=== PATIENT | female | born 1985 ===

== ENCOUNTER 2018-11-27 09:28 | Inpatient (IN) | payer BC ==
[2018-11-27] MEDS ORDERED: Misoprostol 200 MCG Tab PO PRN (10:23)
[2018-11-27] MEDS ORDERED: Terbutaline 1 MG/ML SDV SUBCUT PRN (10:23)
[2018-11-27] MEDS ORDERED: Nalbuphine 10 MG/1 ML Vial IVPUSH PRN (10:23)
[2018-11-27] MEDS ORDERED: Misoprostol 25 MCG (1/4 of 100 MCG) Tab VAG PRN ×2 (10:23)
[2018-11-27] MEDS ORDERED: Butorphanol 1 MG/ML SDV IVPUSH PRN (10:23)
[2018-11-27] MEDS ORDERED: Water For Irrigation,Sterile 1,000 ML Container IRR PRN (10:23)
[2018-11-27] MEDS ORDERED: Sodium Chloride 0.9% 10 ML SDV IV PRN (10:23)
[2018-11-27] MEDS ORDERED: Sodium Chloride 0.9% 2.5 ML Syringe FLUSH PRN (10:23)
[2018-11-27] MEDS ORDERED: Lidocaine 1% 50 ML MDV INJECT PRN (10:23)
[2018-11-27] MEDS ORDERED: Tranexamic Acid 1,000 MG in Sodium Chloride 0.9% 100 ML IV PRN (10:23)
[2018-11-27] MEDS ORDERED: Carboprost Tromethamine 250 MCG/1 ML Amp IM PRN (10:23)
[2018-11-27] MEDS ORDERED: Sodium Chloride 0.9% 10 ML Syringe FLUSH PRN (10:23)
[2018-11-27] MEDS ORDERED: Methylergonovine 0.2 MG/1 ML Amp IM PRN (10:23)
[2018-11-27] MEDS ORDERED: Oxytocin/0.9 % Sodium Chloride 30 UNIT/500 ML BAG IV SCH ×2 (10:30)
[2018-11-27] MEDS ORDERED: Lactated Ringers 1,000 ML IV SCH (10:30)
[2018-11-27] MEDS ORDERED: ePHEDrine 50 MG/ML SDV ONE (14:02)
[2018-11-27] MEDS ORDERED: fentaNYL 100 MCG/2 ML SDV ONE ×2 (14:30→15:09)
--- NOTE | 2018-11-27 14:42 | PCM.PREANE ---
Preanesthetic Assessment - Anesthesia/Transfusion/Family Hx Anesthesia History: Prior Anesthesia Without Reaction Other Type of Anesthesia Reaction Comment: Reports always get sick, last procedure with pre-IV med and Patch worked Family History of Anesthesia Reaction: No Transfusion History: No Prior Transfusion(s) - Review of Systems General: No Symptoms Pulmonary: No Symptoms Cardiovascular: Other (history of Takotsubo cardiomyopathy) Gastrointestinal: No Symptoms Neurological: No Symptoms Other: Reports: None - Physical Assessment Height: 6 ft 1 in Weight: 170 kg ASA Class: 2 Mental Status: Alert & Oriented x3 Airway Class: Mallampati = 2 Dentition: Reports: Normal Dentition ROM/Head Extension: Full Lungs: Clear to Auscultation, Normal Respiratory Effort Cardiovascular: Regular Rate, Regular Rhythm, Other (hypertension) - Lab Values: Laboratory Last Values WBC 6.13 K/uL (4.0-11.0) 11/27/18 09:25 RBC 4.29 M/uL (4.30-5.90) L 11/27/18 09:25 Hgb 13.2 g/dL (12.0-16.0) 11/27/18 09:25 Hct 40.0 % (36.0-46.0) 11/27/18 09:25 MCV 93.2 fL (80.0-98.0) 11/27/18 09:25 MCH 30.8 pg (27.0-32.0) 11/27/18 09:25 MCHC 33.0 g/dL (31.0-37.0) 11/27/18 09:25 RDW Std Deviation 45.2 fl (28.0-62.0) 11/27/18 09:25 RDW Coeff of Fam 13 % (11.0-15.0) 11/27/18 09:25 Plt Count 182 K/uL (150-400) 11/27/18 09:25 MPV 12.10 fL (7.40-12.00) H 11/27/18 09:25 Nucleated RBC % 0.0 /100WBC 11/27/18 09:25 Nucleated RBCs # 0 K/uL 11/27/18 09:25 Blood Type O POSITIVE 11/27/18 09:25 Antibody Screen NEGATIVE 11/27/18 09:25 - Allergies Allergies/Adverse Reactions: Allergies Allergy/AdvReac Type Severity Reaction Status Date / Time No Known Allergies Allergy Verified 01/18/15 09:45 - Acknowledgements Anesthesia Type Planned: Epidural Pt an Appropriate Candidate for the Planned Anesthesia: Yes Alternatives and Risks of Anesthesia Discussed w Pt/Guardian: Yes Pt/Guardian Understands and Agrees with Anesthesia Plan: Yes PreAnesthesia Questionnaire HEENT History: Reports: Other (See Below) Other HEENT History: nasal surgery Cardiovascular History: Reports: Cardiomyopathy, Hypertension Respiratory History: Reports: None Gastrointestinal History: Reports: None Genitourinary History: Reports: None BURNT LIME DRAWER History: Reports: Ectopic : 2 Para: 1 Other OB/BYN History: Current bleeding in early , abnormally rising hcg levels Musculoskeletal History: Reports: None Other Musculoskeletal History: ORIF Left wrist Neurological History: Reports: Migraines Endocrine/Metabolic History: Reports: None Hematologic History: Reports: None Immunologic History: Reports: None Oncologic (Cancer) History: Reports: None Dermatologic History: Reports: Eczema Other Dermatologic History: Eczema - Past Surgical History Other HEENT Surgeries/Procedures: REduction of fractured nose, Extraction of Douglas teeth Cardiovascular Surgical History: Reports: None Other Cardiovascular Surgeries/Procedures: Cardiac Cath - SUBSTANCE USE Smoking Status *Q: Never Smoker Recreational Drug Use History: No - HOME MEDS Home Medications: Home Meds Cholecalciferol (Vitamin D3) [Vitamin D-3] 1 tab PO DAILY 01/18/15 [History] Fish Oil/Burt-3 Fatty Acids [Fish Oil 1,000 MG] 1 tab PO DAILY 01/18/15 [ History] Labetalol HCl [Labetalol] 1 tab PO BID 01/18/15 [History] Ubidecarenone [Co Q-10] 1 tab PO DAILY 01/18/15 [History] metFORMIN HCl [Metformin HCl] 1 tab PO BID 01/18/15 [History] Ibuprofen 3 tab PO PRN 01/19/15 [History] - CURRENT (IN HOUSE) MEDS Current Meds: Current Medications Butorphanol Tartrate (Stadol) 1 mg IVPUSH Q1H PRN PRN Reason: Pain Last Admin: 11/27/18 12:56 Dose: 1 mg Carboprost Tromethamine (Hemabate Ds) 250 mcg IM ASDIRECTED PRN PRN Reason: Post Hemorrhage Lactated Ringer's (Ringers, Lactated) 1,000 mls @ 150 mls/hr IV ASDIRECTED FRANCINE Last Admin: 11/27/18 10:39 Dose: 150 mls/hr Oxytocin/Sodium Chloride (Oxytocin 30 Unit/500 Ml-Ns) 30 unit in 500 mls @ 999 mls/hr IV TITRATE FRANCINE Oxytocin/Sodium Chloride (Oxytocin 30 Unit/500 Ml-Ns) 30 unit in 500 mls @ 2 mls/hr IV TITRATE FRANCINE; Protocol Last Titration: 11/27/18 12:45 Dose: 10 munits/min, 10 mls/hr Tranexamic Acid 1,000 mg/ (Sodium Chloride) 110 mls @ 660 mls/hr IV ONETIME PRN PRN Reason: Bleeding Lidocaine HCl (Xylocaine 1%) 50 ml INJECT ONETIME PRN PRN Reason: Laceration repair Methylergonovine Maleate (Methergine) 0.2 mg IM ASDIRECTED PRN PRN Reason: Post Hemorrhage Misoprostol (Cytotec) 200 mcg PO ONETIME PRN PRN Reason: Post Hemorrhage Misoprostol (Cytotec) 25 mcg VAG ONETIME PRN PRN Reason: Cervical Ripening Misoprostol (Cytotec) 25 mcg VAG Q4H PRN PRN Reason: Cervical Ripening Nalbuphine HCl (Nubain) 10 mg IVPUSH Q1H PRN PRN Reason: Pain (severe 7-10) Sodium Chloride (Saline Flush) 10 ml FLUSH ASDIRECTED PRN PRN Reason: Keep Vein Open Sodium Chloride (Saline Flush) 2.5 ml FLUSH ASDIRECTED PRN PRN Reason: Keep Vein Open Sodium Chloride (Normal Saline) 10 ml IV ASDIRECTED PRN PRN Reason: IV Use Sterile Water (Sterile Water For Irrigation) 1,000 ml IRR ASDIRECTED PRN PRN Reason: delivery Terbutaline Sulfate (Brethine) 0.25 mg SUBCUT ASDIRECTED PRN PRN Reason: Tacysystole Discontinued Medications Ephedrine Sulfate (Ephedrine Sulfate) Confirm Administered Dose 50 mg .ROUTE .STK-MED ONE Stop: 11/27/18 14:03 Fentanyl (Sublimaze) Confirm Administered Dose 100 mcg .ROUTE .STK-MED ONE Stop: 11/27/18 14:31 Fentanyl/Bupivacaine HCl (Idldjwxz-Iyiah-Dr 2 Mcg/Ml-0.125%) Confirm Administered Dose 100 mls @ as directed .ROUTE .STK-MED ONE Stop: 11/27/18 13:55
[2018-11-27] MEDS ORDERED: Bupivacaine 0.25% 10 ML SDV ONE (14:51)
[2018-11-27] MEDS ORDERED: Acetaminophen 500 MG Tab PO PRN (16:39)
[2018-11-27] MEDS ORDERED: Aluminum Hydroxide/Magnesium Hydroxide/Simethicone Susp 30 ML Cup PO PRN (16:39)
[2018-11-27] MEDS ORDERED: Bisacodyl 10 MG Supp RECTAL PRN (16:39)
[2018-11-27] MEDS ORDERED: Ibuprofen 800 MG Tab PO PRN (16:39)
[2018-11-27] MEDS ORDERED: Benzocaine/Menthol 20%-0.5% Spray 78 GM Cannister TOP PRN (16:39)
[2018-11-27] MEDS ORDERED: Docusate Sodium 100 MG Cap PO PRN (16:39)
[2018-11-27] MEDS ORDERED: Lanolin 100% Cream 7 GM Tube TOP PRN (16:39)
[2018-11-27] MEDS ORDERED: Ibuprofen 400 MG Tab PO PRN (16:39)
[2018-11-27] MEDS ORDERED: oxyCODONE 5 MG Tab PO PRN (16:39)
[2018-11-27] MEDS ORDERED: Witch Hazel Medicated Pads 40/Jar TOP PRN (16:39)
--- NOTE | 2018-11-27 16:42 | PCM.OPNOTE ---
- General Post-Op/Procedure Note Date of Surgery/Procedure: 11/27/18 Findings: Vaginal delivery of male . 7 and 8. Weight pending. 3 vessel cord. Placenta intact. Pre Op Diagnosis: 39/0 IUP presenting for induction of labor. Chronic hypertensive. 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
--- NOTE | 2018-11-27 17:49 | OR ---
SURGEON: Kanika Milligan M.D. DATE OF PROCEDURE: 11/27/2018 PREOPERATIVE DIAGNOSES: 1. 39 weeks' intrauterine . 2. Chronic hypertension. 3. History of cardiomyopathy. POSTOPERATIVE DIAGNOSES: 1. 39 weeks' intrauterine . 2. Chronic hypertension. 3. History of cardiomyopathy. PROCEDURES: Spontaneous vaginal delivery, a first-degree periurethral laceration repaired. PRIMARY SURGEON: Kanika Milligan MD. DATA CONTROL CLERK: Alisa Salamanca MS4. ANESTHESIA: Epidural. ESTIMATED BLOOD LOSS: 300 mL. COMPLICATIONS: None known. FINDINGS: Viable male. scores 9 at 1 minute and 9 at 5 minutes. Weight is pending. Spontaneous delivery, intact placenta, 3-vessel cord. DISPOSITION: Infant to nursery, mom in LDRP. PROCEDURE DETAILS: Yajaira is a 33-year-old, G3, P 1-0-1-1, at 39 weeks' gestational age, who presents for scheduled induction of labor due to chronic hypertension affecting , on labetalol, and history of cardiomyopathy. On the morning of her presentation, she was found to be 3 cm, 70% effaced, minus 2 station and therefore was admitted on Pitocin induction. Category 1 heart tones. The patient underwent amniotomy shortly before 1 p.m. Clear fluid was returned. She is group B beta strep negative. At that time, she was found 4 cm, 80% effaced, minus 2 station. The patient continued to become increasingly uncomfortable, underwent regional anesthesia in the form of epidural. She did have some discomfort with this epidural on the left side. Therefore, ultimately underwent a replacement of this epidural, and thereafter, she began having more pressure. She was found to be 7 to 8 cm, 90% effaced, at a 0 station. There were some variable decelerations noted with contractions, therefore, Pitocin was discontinued. The patient was repositioned, oxygen was applied, IV fluid was administered, and FSE was placed. With this, the patient was able to continue to progress and was feeling pressure. Was found to be in anterior lip. She was placed in modified dorsal lithotomy position, prepped and draped in usual aseptic manner. The anterior lip was able to be reducible, and once complete, began pushing efforts. Pushed readily to a +4 station. Was able to deliver 's head atraumatically spontaneously followed by anterior shoulder, posterior shoulder, and remainder of the body without difficulty. The 's oropharynx and nares were bulb suctioned. was crying and vigorous, handed to his mother with attending nursing staff at her side. After a delay, cord was clamped x2 and cut. Cord arterial, cord venous, cord blood sampling obtained. Light pressure was applied while the placenta was delivered spontaneously intact. Vigorous fundal uterine massage was then applied while 30 units of Pitocin was delivered in 500 mL of IV fluid. Upon inspection of cervix, vaginal sidewalls, and perineum, there was found to be first-degree periurethral laceration that was repaired using 4-0 Vicryl in continuous running fashion on SH needle. Hemostasis appeared evident. Uterus was firm. Sponge count, instrument count, and needle count were correct. The patient remained in LDRP. We will monitor closely in the period for her vital signs and any symptomatology of chest pain or shortness of breath. ESTUARDO / BAILEY /[id number] MTDChandler
[2018-11-27] MEDS ORDERED: Ondansetron 4 MG/2 ML SDV ONE (18:34)
[2018-11-27] MEDS ORDERED: Ondansetron 4 MG/2 ML SDV IVPUSH PRN (19:02)
[2018-11-27] MEDS: Labetalol 100 MG Tab PO SCH (21:22)
[2018-11-27] MEDS: Acetaminophen 500 MG Tab PO PRN (21:25)
--- NOTE | 2018-11-28 05:04 | PCM48HPAN ---
Post Anesthesia Note - EVALUATION WITHIN 48HRS OF ANESTHETIC Vital Signs in Normal Range: Yes Patient Participated in Evaluation: Yes Respiratory Function Stable: Yes Airway Patent: Yes Cardiovascular Function Stable: Yes Hydration Status Stable: Yes Pain Control Satisfactory: Yes Nausea and Vomiting Control Satisfactory: Yes Mental Status Recovered: Yes Pulse Rate: 57 SaO2: 100 Resp Rate: 16 Blood Pressure: 124/81
--- NOTE | 2018-11-28 08:02 | PCM.PNPP ---
<Martha Cordoba - Last Filed: 11/28/18 07:58> - General Info Date of Service: 11/28/18 Functional Status: Reports: Pain Controlled - Review of Systems General: Reports: No Symptoms. Denies: Fatigue, Chills HEENT: Reports: No Symptoms. Denies: Headaches, Visual Changes Pulmonary: Reports: No Symptoms. Denies: Shortness of Breath, Cough Cardiovascular: Reports: No Symptoms. Denies: Chest Pain, Palpitations, Orthopnea, PND Gastrointestinal: Reports: No Symptoms Genitourinary: Reports: No Symptoms Musculoskeletal: Reports: No Symptoms Skin: Reports: No Symptoms Neurological: Reports: No Symptoms Psychiatric: Reports: No Symptoms - General Info Date of Service: 11/28/18 - Patient Data Vital Signs - Most Recent: Last Vital Signs Temp 97.9 F 11/27/18 19:25 Pulse 57 L 11/28/18 05:04 Resp 16 11/28/18 05:04 BP 124/81 11/28/18 05:04 Pulse Ox 100 11/28/18 05:04 Weight - Most Recent: 77.111 kg Lab Results - Last 24 Hours: Laboratory Results - last 24 hr 11/27/18 11/27/18 11/27/18 Range/Units 09:25 09:25 16:21 WBC 6.13 (4.0-11.0) K/uL RBC 4.29 L (4.30-5.90) M/uL Hgb 13.2 (12.0-16.0) g/dL Hct 40.0 (36.0-46.0) % MCV 93.2 (80.0-98.0) fL MCH 30.8 (27.0-32.0) pg MCHC 33.0 (31.0-37.0) g/dL RDW Std Deviation 45.2 (28.0-62.0) fl RDW Coeff of Fam 13 (11.0-15.0) % Plt Count 182 (150-400) K/uL MPV 12.10 H (7.40-12.00) fL Nucleated RBC % 0.0 /100WBC Nucleated RBCs # 0 K/uL Cord ABG pH 7.234 (7.18-7.38) Cord ABG Base Excess -7 (-10--2) Cord VBG pH 7.240 L (7.25-7.45) Cord VBG Base Excess -7 (-10--2) Blood Type O POSITIVE Antibody Screen NEGATIVE 11/28/18 Range/Units 05:45 WBC (4.0-11.0) K/uL RBC (4.30-5.90) M/uL Hgb 12.9 (12.0-16.0) g/dL Hct 39.6 (36.0-46.0) % MCV (80.0-98.0) fL MCH (27.0-32.0) pg MCHC (31.0-37.0) g/dL RDW Std Deviation (28.0-62.0) fl RDW Coeff of Fam (11.0-15.0) % Plt Count (150-400) K/uL MPV (7.40-12.00) fL Nucleated RBC % /100WBC Nucleated RBCs # K/uL Cord ABG pH (7.18-7.38) Cord ABG Base Excess (-10--2) Cord VBG pH (7.25-7.45) Cord VBG Base Excess (-10--2) Blood Type Antibody Screen Med Orders - Current: Current Medications Acetaminophen (Tylenol Extra Strength) 500 mg PO Q4H PRN PRN Reason: Pain Acetaminophen (Tylenol Extra Strength) 1,000 mg PO Q4H PRN PRN Reason: Pain Last Admin: 11/27/18 21:25 Dose: 1,000 mg Al Hydroxide/Mg Hydroxide (Mag-Al Plus) 30 ml PO Q8H PRN PRN Reason: Heartburn Benzocaine/Menthol (Dermoplast Pain Relief 20%-0.5% [place]) 78 gm TOP ASDIRECTED PRN PRN Reason: Perineal Comfort Measure Bisacodyl (Dulcolax) 10 mg RECTAL ONETIME PRN PRN Reason: Constipation Carboprost Tromethamine (Hemabate Ds) 250 mcg IM ASDIRECTED PRN PRN Reason: Post Hemorrhage Docusate Sodium (Colace) 100 mg PO BID PRN PRN Reason: Constipation Emollient Ointment (Lansinoh Hpa) 0 gm TOP ASDIRECTED PRN PRN Reason: Sore Nipples Lactated Ringer's (Ringers, Lactated) 1,000 mls @ 150 mls/hr IV ASDIRECTED FRANCINE Last Admin: 11/27/18 10:39 Dose: 150 mls/hr Oxytocin/Sodium Chloride (Oxytocin 30 Unit/500 Ml-Ns) 30 unit in 500 mls @ 999 mls/hr IV TITRATE FRANCINE Oxytocin/Sodium Chloride (Oxytocin 30 Unit/500 Ml-Ns) 30 unit in 500 mls @ 2 mls/hr IV TITRATE FRANCINE; Protocol Last Titration: 11/27/18 12:45 Dose: 10 munits/min, 10 mls/hr Tranexamic Acid 1,000 mg/ (Sodium Chloride) 110 mls @ 660 mls/hr IV ONETIME PRN PRN Reason: Bleeding Ibuprofen (Motrin) 400 mg PO Q4H PRN PRN Reason: Pain Ibuprofen (Motrin) 800 mg PO Q6H PRN PRN Reason: Pain Labetalol HCl (Normodyne) 200 mg PO BID [facility] Last Admin: 11/27/18 21:22 Dose: 200 mg Methylergonovine Maleate (Methergine) 0.2 mg IM ASDIRECTED PRN PRN Reason: Post Hemorrhage Ondansetron HCl (Zofran) 4 mg IVPUSH Q6H PRN PRN Reason: Nausea/Vomiting Last Admin: 11/27/18 18:40 Dose: 4 mg Oxycodone HCl (Oxycodone) 5 mg PO Q2H PRN PRN Reason: Pain Sodium Chloride (Saline Flush) 10 ml FLUSH ASDIRECTED PRN PRN Reason: Keep Vein Open Sodium Chloride (Saline Flush) 2.5 ml FLUSH ASDIRECTED PRN PRN Reason: Keep Vein Open Sodium Chloride (Normal Saline) 10 ml IV ASDIRECTED PRN PRN Reason: IV Use Sterile Water (Sterile Water For Irrigation) 1,000 ml IRR ASDIRECTED PRN PRN Reason: delivery Terbutaline Sulfate (Brethine) 0.25 mg SUBCUT ASDIRECTED PRN PRN Reason: Tacysystole Witch Serenity (Tucks) 1 pad TOP ASDIRECTED PRN PRN Reason: comfort care Discontinued Medications Bupivacaine HCl (Sensorcaine-Mpf 0.25%) Confirm Administered Dose 10 ml .ROUTE .STK-MED ONE Stop: 11/27/18 14:52 Butorphanol Tartrate (Stadol) 1 mg IVPUSH Q1H PRN PRN Reason: Pain Last Admin: 11/27/18 12:56 Dose: 1 mg Ephedrine Sulfate (Ephedrine Sulfate) Confirm Administered Dose 50 mg .ROUTE .STK-MED ONE Stop: 11/27/18 14:03 Fentanyl (Sublimaze) Confirm Administered Dose 100 mcg .ROUTE .STK-MED ONE Stop: 11/27/18 14:31 Fentanyl (Sublimaze) Confirm Administered Dose 100 mcg .ROUTE .STK-MED ONE Stop: 11/27/18 15:10 Fentanyl/Bupivacaine HCl ([place]-Hhcre-Sq 2 Mcg/Ml-0.125%) Confirm Administered Dose 100 mls @ as directed .ROUTE .STK-MED ONE Stop: 11/27/18 13:55 Lidocaine HCl (Xylocaine 1%) 50 ml INJECT ONETIME PRN PRN Reason: Laceration repair Misoprostol (Cytotec) 200 mcg PO ONETIME PRN PRN Reason: Post Hemorrhage Misoprostol (Cytotec) 25 mcg VAG ONETIME PRN PRN Reason: Cervical Ripening Misoprostol (Cytotec) 25 mcg VAG Q4H PRN PRN Reason: Cervical Ripening Nalbuphine HCl (Nubain) 10 mg IVPUSH Q1H PRN PRN Reason: Pain (severe 7-10) Ondansetron HCl (Zofran) Confirm Administered Dose 4 mg .ROUTE .STK-MED ONE Stop: 11/27/18 18:35 - Infant Interaction Infant Disposition, : in Room with Family Infant Interaction: Holding Infant Infant Feeding: Attempted ; Nursed Fair/Poor, Encouraged to Breastfeed Support Person: - Recovery Exam Fundal Tone: Firm Fundal Level: 2 Fingerbreadths Below Umbilicus Fundal Placement: Midline Lochia Amount: Scant Lochia Color: Rubra/Red Perineum Description: Other (see below) Other Perinuem Description: 1 degree laceration Episiotomy/Laceration: Approximated Bladder Status: Voiding Urinary Elimination: Voided - Exam General: Alert, Oriented HEENT: Pupils Equal Neck: Supple Lungs: Clear to Auscultation, Normal Respiratory Effort Cardiovascular: Regular Rate, Regular Rhythm GI/Abdominal Exam: Normal Bowel Sounds, Soft, Non-Tender, No Organomegaly, No Distention, No Abnormal Bruit, No Mass, Pelvis Stable Extremities: Normal Inspection, Non-Tender, No Pedal Edema, Normal Capillary Refill Skin: Warm, Dry, Intact Wound/Incisions: Healing Well Neurological: No New Focal Deficit Psy/Mental Status: Alert, Normal Affect, Normal Mood - Problem List Review Problem List Initiated/Reviewed/Updated: Yes - Assessment Assessment:: 33y . S/P . PPD1. Ambulating , normal lochia. Voiding. Pain well controlled. Regular diet - Plan Plan:: Regular diet Pain control PRN Continue care <Mamadou Milligana Dago - Last Filed: 11/28/18 08:32> - Patient Data Vital Signs - Most Recent: Last Vital Signs Temp 36.6 C 11/27/18 19:25 Pulse 57 L 11/28/18 05:04 Resp 16 11/28/18 05:04 BP 124/81 11/28/18 05:04 Pulse Ox 100 11/28/18 05:04 Lab Results - Last 24 Hours: Laboratory Results - last 24 hr 11/27/18 11/27/18 11/27/18 Range/Units 09:25 09:25 16:21 WBC 6.13 (4.0-11.0) K/uL RBC 4.29 L (4.30-5.90) M/uL Hgb 13.2 (12.0-16.0) g/dL Hct 40.0 (36.0-46.0) % MCV 93.2 (80.0-98.0) fL MCH 30.8 (27.0-32.0) pg MCHC 33.0 (31.0-37.0) g/dL RDW Std Deviation 45.2 (28.0-62.0) fl RDW Coeff of Fam 13 (11.0-15.0) % Plt Count 182 (150-400) K/uL MPV 12.10 H (7.40-12.00) fL Nucleated RBC % 0.0 /100WBC Nucleated RBCs # 0 K/uL Cord ABG pH 7.234 (7.18-7.38) Cord ABG Base Excess -7 (-10--2) Cord VBG pH 7.240 L (7.25-7.45) Cord VBG Base Excess -7 (-10--2) Blood Type O POSITIVE Antibody Screen NEGATIVE 08/01/19 Range/Units 05:45 WBC (4.0-11.0) K/uL RBC (4.30-5.90) M/uL Hgb 12.9 (12.0-16.0) g/dL Hct 39.6 (36.0-46.0) % MCV (80.0-98.0) fL MCH (27.0-32.0) pg MCHC (31.0-37.0) g/dL RDW Std Deviation (28.0-62.0) fl RDW Coeff of Fam (11.0-15.0) % Plt Count (150-400) K/uL MPV (7.40-12.00) fL Nucleated RBC % /100WBC Nucleated RBCs # K/uL Cord ABG pH (7.18-7.38) Cord ABG Base Excess (-10--2) Cord VBG pH (7.25-7.45) Cord VBG Base Excess (-10--2) Blood Type Antibody Screen Med Orders - Current: Current Medications Acetaminophen (Tylenol Extra Strength) 500 mg PO Q4H PRN PRN Reason: Pain Acetaminophen (Tylenol Extra Strength) 1,000 mg PO Q4H PRN PRN Reason: Pain Last Admin: 11/27/18 21:25 Dose: 1,000 mg Al Hydroxide/Mg Hydroxide (Mag-Al Plus) 30 ml PO Q8H PRN PRN Reason: Heartburn Benzocaine/Menthol (Dermoplast Pain Relief 20%-0.5% [place]) 78 gm TOP ASDIRECTED PRN PRN Reason: Perineal Comfort Measure Bisacodyl (Dulcolax) 10 mg RECTAL ONETIME PRN PRN Reason: Constipation Carboprost Tromethamine (Hemabate Ds) 250 mcg IM ASDIRECTED PRN PRN Reason: Post Hemorrhage Docusate Sodium (Colace) 100 mg PO BID PRN PRN Reason: Constipation Emollient Ointment (Lansinoh Hpa) 0 gm TOP ASDIRECTED PRN PRN Reason: Sore Nipples Lactated Ringer's (Ringers, Lactated) 1,000 mls @ 150 mls/hr IV ASDIRECTED FRANCINE Last Admin: 11/27/18 10:39 Dose: 150 mls/hr Oxytocin/Sodium Chloride (Oxytocin 30 Unit/500 Ml-Ns) 30 unit in 500 mls @ 999 mls/hr IV TITRATE FRANCINE Oxytocin/Sodium Chloride (Oxytocin 30 Unit/500 Ml-Ns) 30 unit in 500 mls @ 2 mls/hr IV TITRATE FRANCINE; Protocol Last Titration: 11/27/18 12:45 Dose: 10 munits/min, 10 mls/hr Tranexamic Acid 1,000 mg/ (Sodium Chloride) 110 mls @ 660 mls/hr IV ONETIME PRN PRN Reason: Bleeding Ibuprofen (Motrin) 400 mg PO Q4H PRN PRN Reason: Pain Ibuprofen (Motrin) 800 mg PO Q6H PRN PRN Reason: Pain Labetalol HCl (Normodyne) 200 mg PO BID FRANCINE Last Admin: 11/27/18 21:22 Dose: 200 mg Methylergonovine Maleate (Methergine) 0.2 mg IM ASDIRECTED PRN PRN Reason: Post Hemorrhage Ondansetron HCl (Zofran) 4 mg IVPUSH Q6H PRN PRN Reason: Nausea/Vomiting Last Admin: 11/27/18 18:40 Dose: 4 mg Oxycodone HCl (Oxycodone) 5 mg PO Q2H PRN PRN Reason: Pain Sodium Chloride (Saline Flush) 10 ml FLUSH ASDIRECTED PRN PRN Reason: Keep Vein Open Sodium Chloride (Saline Flush) 2.5 ml FLUSH ASDIRECTED PRN PRN Reason: Keep Vein Open Sodium Chloride (Normal Saline) 10 ml IV ASDIRECTED PRN PRN Reason: IV Use Sterile Water (Sterile Water For Irrigation) 1,000 ml IRR ASDIRECTED PRN PRN Reason: delivery Terbutaline Sulfate (Brethine) 0.25 mg SUBCUT ASDIRECTED PRN PRN Reason: Tacysystole Witch Serenity (Tucks) 1 pad TOP ASDIRECTED PRN PRN Reason: comfort care Discontinued Medications Bupivacaine HCl (Sensorcaine-Mpf 0.25%) Confirm Administered Dose 10 ml .ROUTE .STK-MED ONE Stop: 11/27/18 14:52 Butorphanol Tartrate (Stadol) 1 mg IVPUSH Q1H PRN PRN Reason: Pain Last Admin: 11/27/18 12:56 Dose: 1 mg Ephedrine Sulfate (Ephedrine Sulfate) Confirm Administered Dose 50 mg .ROUTE .STK-MED ONE Stop: 11/27/18 14:03 Fentanyl (Sublimaze) Confirm Administered Dose 100 mcg .ROUTE .STK-MED ONE Stop: 11/27/18 14:31 Fentanyl (Sublimaze) Confirm Administered Dose 100 mcg .ROUTE .STK-MED ONE Stop: 11/27/18 15:10 Fentanyl/Bupivacaine HCl (Touuonkn-Lcsco-Xm 2 Mcg/Ml-0.125%) Confirm Administered Dose 100 mls @ as directed .ROUTE .STK-MED ONE Stop: 11/27/18 13:55 Lidocaine HCl (Xylocaine 1%) 50 ml INJECT ONETIME PRN PRN Reason: Laceration repair Misoprostol (Cytotec) 200 mcg PO ONETIME PRN PRN Reason: Post Hemorrhage Misoprostol (Cytotec) 25 mcg VAG ONETIME PRN PRN Reason: Cervical Ripening Misoprostol (Cytotec) 25 mcg VAG Q4H PRN PRN Reason: Cervical Ripening Nalbuphine HCl (Nubain) 10 mg IVPUSH Q1H PRN PRN Reason: Pain (severe 7-10) Ondansetron HCl (Zofran) Confirm Administered Dose 4 mg .ROUTE .STK-MED ONE Stop: 11/27/18 18:35 - My Orders Last 24 Hours: My Active Orders 11/27/18 10:23 Patient Status [ADT] Routine Bedrest Bathroom Privileges [RC] ASDIRECTED Communication Order [RC] ASDIRECTED Heart Tones [RC] CONTINUOUS Non Stress Test [RC] PER UNIT ROUTINE May Shower [RC] ASDIRECTED Notify Provider [RC] PRN Oxygen Therapy [RC] ASDIRECTED Vaginal Exam [RC] PRN Vital Signs [RC] PER UNIT ROUTINE Carboprost Tromethamine [Hemabate DS] 250 mcg IM ASDIRECTED PRN Methylergonovine [Methergine] 0.2 mg IM ASDIRECTED PRN Sodium Chloride 0.9% [Normal Saline] 10 ml IV ASDIRECTED PRN Sodium Chloride 0.9% [Saline Flush] 10 ml FLUSH ASDIRECTED PRN Sodium Chloride 0.9% [Saline Flush] 2.5 ml FLUSH ASDIRECTED PRN Terbutaline [Brethine] 0.25 mg SUBCUT ASDIRECTED PRN Tranexamic Acid [Cyklokapron] 1,000 mg Sodium Chloride 0.9% [Normal Saline] 100 ml IV ONETIME Water For Irrigation,Sterile [Sterile Water for Irrigation] 1,000 ml IRR ASDIRECTED PRN Peripheral IV Insertion Adult [OM.PC] Routine Resuscitation Status Routine 11/27/18 10:30 Lactated Ringers [Ringers, Lactated] 1,000 ml IV ASDIRECTED Oxytocin/0.9 % Sodium Chloride [Oxytocin 30 Unit/500 ML-NS] 30 unit in 500 ml IV TITRATE Oxytocin/0.9 % Sodium Chloride [Oxytocin 30 Unit/500 ML-NS] 30 unit in 500 ml IV TITRATE Medication Administration Instruction [OM.PC] Q3H 11/27/18 16:39 Patient Status [ADT] Routine May Shower [RC] ASDIRECTED Notify Provider Vital Signs [RC] ASDIRECTED Up ad Nancy [RC] ASDIRECTED Vital Signs [RC] PER UNIT ROUTINE Acetaminophen [Tylenol Extra Strength] 1,000 mg PO Q4H PRN Acetaminophen [Tylenol Extra Strength] 500 mg PO Q4H PRN Alum Hydrox/Mag Hydrox/Simeth [Mag-Al Plus] 30 ml PO Q8H PRN Benzocaine/Menthol [Dermoplast Pain Relief 20%-0.5% [place]] 78 gm TOP ASDIRECTED PRN Bisacodyl [Dulcolax] 10 mg RECTAL ONETIME PRN Docusate Sodium [Colace] 100 mg PO BID PRN Ibuprofen [Motrin] 400 mg PO Q4H PRN Ibuprofen [Motrin] 800 mg PO Q6H PRN Lanolin [Lansinoh HPA] See Dose Instructions TOP ASDIRECTED PRN Witch Serenity [Tucks] 1 pad TOP ASDIRECTED PRN oxyCODONE 5 mg PO Q2H PRN Assess Lochia [WOMSER] Per Unit Routine Assess Uterine Involution [WOMSER] Per Unit Routine Breast Pump [WOMSER] Per Unit Routine Peripheral IV Discontinue [OM.PC] Routine 11/27/18 16:42 Ice Therapy [OM.PC] Per Unit Routine Perineal Care [OM.PC] Per Unit Routine Sitz Bath [OM.PC] Per Unit Routine 11/27/18 19:02 Ondansetron [Zofran] 4 mg IVPUSH Q6H PRN 11/27/18 Dinner Regular Diet [DIET] - Plan Plan:: Patient is feeling well. Denies headaches, visual changes, chest pain or shortness of breath. Continue labetalol bid. She would like to go home later. May discharge to home later today Discharge instructions reviewed. She will call clinic with any concerns. She will call if BP consistently >140/90. Follow up at [facility] 6 weeks and prn.
[2018-11-28] MEDS: Labetalol 100 MG Tab PO SCH (09:02)
[2018-11-28] MEDS: Acetaminophen 500 MG Tab PO PRN ×2 (09:16→14:48)
[2018-11-28 16:51] VITALS: BP 126/77; PULSE 61
== END 2018-11-28 18:00 | disposition home or self-care (01) | DRG 560 ==
LOC: MW.OB 09:28 → OBSVTOIN 16:21 → MW.OB 19:00
PROVIDERS: ADMIT Obstetrics & Gynecology; ATTEND Obstetrics & Gynecology
PROC: 10E0XZZ Delivery of Products of Conception, External Approach (ICD-10-PCS; principal; 2018-11-27)
PROC: 0HQ9XZZ Repair Perineum Skin, External Approach (ICD-10-PCS; 2018-11-27)
PROC: 3E033VJ Introduction of Other Hormone into Peripheral Vein, Percutaneous Approach (ICD-10-PCS; 2018-11-27)
PROC: 10H073Z Insertion of Monitoring Electrode into Products of Conception, Via Natural or Artificial Opening (ICD-10-PCS; 2018-11-27)
DX: O10.92 Unspecified pre-existing hypertension complicating childbirth (principal); Z3A.39 39 weeks gestation of pregnancy; Z37.0 Single live birth; O76 Abnormality in fetal heart rate and rhythm complicating labor and delivery
CPT/HCPCS: 01967; 36415; 59025; 59409; 82803; 85014; 85018; 85027; 86850; 86900; 86901; A9270-GY; J0595; J2405; J2590; J3010; J3490; J7120

== ENCOUNTER 2020-09-01 16:13 | Inpatient (IN) | payer BC ==
[2020-09-01] MEDS ORDERED: Carboprost Tromethamine 250 MCG/1 ML Amp IM PRN (16:40)
[2020-09-01] MEDS ORDERED: Sodium Chloride 0.9% 10 ML Syringe FLUSH PRN (16:40)
[2020-09-01] MEDS ORDERED: Misoprostol 200 MCG Tab PO PRN (16:40)
[2020-09-01] MEDS ORDERED: Lidocaine 1% 50 ML MDV INJECT PRN (16:40)
[2020-09-01] MEDS ORDERED: Ondansetron 4 MG/2 ML SDV IVPUSH PRN (16:40)
[2020-09-01] MEDS ORDERED: Butorphanol 1 MG/ML SDV IVPUSH PRN (16:40)
[2020-09-01] MEDS ORDERED: Sodium Chloride 0.9% 10 ML SDV IV PRN (16:40)
[2020-09-01] MEDS ORDERED: Tranexamic Acid 1,000 MG in Sodium Chloride 0.9% 100 ML IV PRN (16:40)
[2020-09-01] MEDS ORDERED: Sodium Chloride 0.9% 2.5 ML Syringe FLUSH PRN (16:40)
[2020-09-01] MEDS ORDERED: Methylergonovine 0.2 MG/1 ML Amp IM PRN (16:40)
[2020-09-01] MEDS ORDERED: Water For Irrigation,Sterile 1,000 ML Container IRR PRN (16:40)
[2020-09-01] MEDS ORDERED: Terbutaline 1 MG/ML SDV SUBCUT PRN (16:43)
[2020-09-01] MEDS ORDERED: Oxytocin/0.9 % Sodium Chloride 30 UNIT/500 ML BAG IV SCH ×2 (16:45)
[2020-09-01] MEDS: Lactated Ringers 1,000 ML IV SCH ×3 (17:00→21:30)
[2020-09-01] MEDS ORDERED: Ropivacaine HCl/PF 100 ML ONE (18:39)
[2020-09-01] MEDS ORDERED: fentaNYL 100 MCG/2 ML SDV ONE (18:39)
--- NOTE | 2020-09-01 18:56 | PCM.PREANE ---
Preanesthetic Assessment - Anesthesia/Transfusion/Family Hx Anesthesia History: Prior Anesthesia Without Reaction Other Type of Anesthesia Reaction Comment: Reports always get sick, last procedure with pre-IV med and Patch worked Family History of Anesthesia Reaction: No Transfusion History: Prior Transfusion Without Reaction - Physical Assessment NPO Status Date: 09/01/20 NPO Status Time: 18:00 Height: 1.85 m Weight: 77.564 kg ASA Class: 2 - Lab Values: Laboratory Last Values Blood Type O POSITIVE 09/01/20 16:53 Antibody Screen NEGATIVE 09/01/20 16:53 - Allergies Allergies/Adverse Reactions: Allergies Allergy/AdvReac Type Severity Reaction Status Date / Time No Known Allergies Allergy Verified 09/01/20 16:37 - Acknowledgements Anesthesia Type Planned: Epidural Pt an Appropriate Candidate for the Planned Anesthesia: Yes Alternatives and Risks of Anesthesia Discussed w Pt/Guardian: Yes Pt/Guardian Understands and Agrees with Anesthesia Plan: Yes PreAnesthesia Questionnaire HEENT History: Reports: Impaired Vision, Other (See Below) Other HEENT History: nasal surgery Cardiovascular History: Reports: Cardiomyopathy, Hypertension Respiratory History: Reports: None Gastrointestinal History: Reports: None Genitourinary History: Reports: None 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 , Other OB/BYN History: Current bleeding in early , abnormally rising hcg levels Musculoskeletal History: Reports: None Other Musculoskeletal History: ORIF Left wrist Neurological History: Reports: Migraines Endocrine/Metabolic History: Reports: None Hematologic History: Reports: None Immunologic History: Reports: None Oncologic (Cancer) History: Reports: None Dermatologic History: Reports: Eczema Other Dermatologic History: Eczema - Past Surgical History HEENT Surgical History: Reports: Naso-Sinus Surgery, Oral Surgery Other HEENT Surgeries/Procedures: REduction of fractured nose, Extraction of [place] teeth Cardiovascular Surgical History: Reports: Other (See Below) Other Cardiovascular Surgeries/Procedures: Cardiac angiogram Female Surgical History: Reports: D&C Neurological Surgical History: Reports: None Other Musculoskeletal Surgeries/Procedures:: plates and screws in left wrist Dermatological Surgical History: Reports: None - SUBSTANCE USE Tobacco Use Status *Q: Never Tobacco User Recreational Drug Use History: No - HOME MEDS Home Medications: Home Meds Cholecalciferol (Vitamin D3) [Vitamin D-3] 1 tab PO DAILY 01/18/15 [History] Labetalol HCl [Labetalol] 1 tab PO BID 01/18/15 [History] Cyanocobalamin (Vitamin B12) [Vitamin B12] 1 tab PO DAILY 09/01/20 [History] Pnv No.95/Ferrous Fum/Folic AC [ Tablet] 1 tab PO DAILY 09/01/20 [History] - CURRENT (IN HOUSE) MEDS Current Meds: Current Medications Butorphanol Tartrate (Butorphanol 1 Mg/Ml Sdv) 1 mg IVPUSH Q1H PRN PRN Reason: Pain Carboprost Tromethamine (Carboprost Tromethamine 250 Mcg/1 Ml Amp) 250 mcg IM ASDIRECTED PRN PRN Reason: Post Hemorrhage Oxytocin/Sodium Chloride (Oxytocin 30 Unit/500 Ml-Ns) 30 unit in 500 mls @ 999 mls/hr IV TITRATE FRANCINE Tranexamic Acid 1,000 mg/ (Sodium Chloride) 110 mls @ 660 mls/hr IV ONETIME PRN PRN Reason: Bleeding Lactated Ringer's (Ringers, Lactated) 1,000 mls @ 150 mls/hr IV ASDIRECTED FRANCINE Last Admin: 09/01/20 18:32 Dose: 999 mls/hr Documented by: Oxytocin/Sodium Chloride (Oxytocin 30 Unit/500 Ml-Ns) 30 unit in 500 mls @ 2 mls/hr IV TITRATE FRANCINE; Protocol Last Admin: 09/01/20 18:10 Dose: 2 munits/min, 2 mls/hr Documented by: Labetalol HCl (Labetalol 100 Mg Tab) 200 mg PO BID FRANCINE Lidocaine HCl (Lidocaine 1% 50 Ml Mdv) 50 ml INJECT ONETIME PRN PRN Reason: Laceration repair Methylergonovine Maleate (Methylergonovine 0.2 Mg/1 Ml Amp) 0.2 mg IM ASDIRECTED PRN PRN Reason: Post Hemorrhage Misoprostol (Misoprostol 200 Mcg Tab) 200 mcg PO ONETIME PRN PRN Reason: Post Hemorrhage Ondansetron HCl (Ondansetron 4 Mg/2 Ml Sdv) 4 mg IVPUSH Q6H PRN PRN Reason: Nausea/Vomiting Sodium Chloride (Sodium Chloride 0.9% 10 Ml Syringe) 10 ml FLUSH ASDIRECTED PRN PRN Reason: Keep Vein Open Sodium Chloride (Sodium Chloride 0.9% 2.5 Ml Syringe) 2.5 ml FLUSH ASDIRECTED PRN PRN Reason: Keep Vein Open Sodium Chloride (Sodium Chloride 0.9% 10 Ml Sdv) 10 ml IV ASDIRECTED PRN PRN Reason: IV Use Sterile Water (Water For Irrigation,Sterile 1,000 Ml Container) 1,000 ml IRR ASDIRECTED PRN PRN Reason: delivery Terbutaline Sulfate (Terbutaline 1 Mg/Ml Sdv) 0.25 mg SUBCUT ASDIRECTED PRN PRN Reason: Tacysystole Discontinued Medications Fentanyl (Fentanyl 100 Mcg/2 Ml Sdv) Confirm Administered Dose 100 mcg .ROUTE .STK-MED ONE Stop: 09/01/20 18:40 Ropivacaine (Naropin 0.2%) Confirm Administered Dose 100 mls @ as directed .ROUTE .[employer]-MED ONE Stop: 09/01/20 18:40
--- NOTE | 2020-09-01 18:59 | PCM.PRNOTE ---
- Free Text/Narrative Note: Anes Note Patient requests epidural for L&D. Sitting position. Level L3-L4 midline approach. Sterile technqiue. Chloraprep scrub to lumbar area. Sterile fenestrated drape applied. Epidural space easily achieved singel attempt with ease using WINSTON technique. WINSTON at 3 cm. Cath threaded 5 cm with ease. Cath secured at skin using sterile clear adhesive dressing. Test 1850 3 cc 1.5% lido with epi negative. 185 LOad 10 cc 0.2% ropivicaine with 1 mcg cc fentanyl in slow divided doses. 1856 Pump started with 90 cc same solution. Rate is 8 cc hr with 6 cc q 20 min prn bolus. Gerardo well. 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
[2020-09-01] MEDS: Labetalol 100 MG Tab PO SCH (21:29)
[2020-09-02] MEDS ORDERED: fentaNYL 100 MCG/2 ML SDV ONE (05:13)
[2020-09-02] MEDS ORDERED: Ropivacaine HCl/PF 100 ML ONE (05:13)
--- NOTE | 2020-09-02 05:25 | PCM.PRNOTE ---
- Free Text/Narrative Note: Anes NOte Epiudural infusion is completed. A new bag of 90 cc 0.2% ropivicaine with 1 mcg cc fentanyl added was placed. A bolus of 8 cc of thi solution was injected prior to restart. Patient reports pain is a zero out of 10. Time with patient [id number] Antione Elizalde CRNA
[2020-09-02] MEDS ORDERED: Ibuprofen 400 MG Tab PO PRN (07:32)
[2020-09-02] MEDS ORDERED: Bisacodyl 10 MG Supp RECTAL PRN (07:32)
[2020-09-02] MEDS ORDERED: oxyCODONE 5 MG Tab PO PRN (07:32)
[2020-09-02] MEDS ORDERED: Ibuprofen 800 MG Tab PO PRN (07:32)
[2020-09-02] MEDS ORDERED: Docusate Sodium 100 MG Cap PO PRN (07:32)
[2020-09-02] MEDS ORDERED: Witch Hazel Medicated Pads 40/Jar TOP PRN (07:32)
[2020-09-02] MEDS ORDERED: Lanolin 100% Cream 7 GM Tube TOP PRN (07:32)
[2020-09-02] MEDS ORDERED: Acetaminophen 500 MG Tab PO PRN ×2 (07:32)
[2020-09-02] MEDS ORDERED: Benzocaine/Menthol 20%-0.5% Spray 78 GM Cannister TOP PRN (07:32)
[2020-09-02] MEDS: Labetalol 100 MG Tab PO SCH ×2 (08:39→20:45)
--- NOTE | 2020-09-02 09:44 | PCM48HPAN ---
Post Anesthesia Note - EVALUATION WITHIN 48HRS OF ANESTHETIC Vital Signs in Normal Range: Yes Patient Participated in Evaluation: Yes Respiratory Function Stable: Yes Airway Patent: Yes Cardiovascular Function Stable: Yes Hydration Status Stable: Yes Pain Control Satisfactory: Yes Nausea and Vomiting Control Satisfactory: Yes Mental Status Recovered: Yes Vital Signs: Last Vital Signs Temp Pulse 76 09/02/20 08:39 Resp BP 115/72 09/02/20 08:39 Pulse Ox
--- NOTE | 2020-09-02 12:06 | PCM.DEL ---
L & D Note - General Info Date of Service: 09/02/20 - Delivery Note Labor: Spontaneous, Augmented by ARM, Augmented by Oxytocin Cervical Ripening Method: Oxytocin Delivery Outcome: Livebirth Delivery Method: Spontaneous Vaginal Delivery-Single Presentation: Left Occiput Anterior (SHANICE) Nuchal Cord: Present Anesthesia Type: Epidural Amniotic Fluid Description: Clear Episiotomy Type: None Laceration: None Placenta: Spontaneous Cord: 3 Vessels Estimated Blood Loss: 300 Resuscitation Needed: No Score 1 min: 8 Score 5 min: 9 Second Stage Interventions: Reports: Pushing Effectively Delivery Comments (Free Text/Narrative):: Live female delivered at 615am , 8/9 Weight 2530g - General Info Date of Service: 09/02/20 - Patient Data Vitals - Most Recent: Last Vital Signs Temp Pulse 76 09/02/20 08:39 Resp BP 115/72 09/02/20 08:39 Pulse Ox Weight - Most Recent: 77.564 kg I&O - Last 24 Hours: Intake & Output 09/01/20 09/02/20 09/02/20 22:59 06:59 14:59 Output Total 1000 Balance -1000 Lab Results Last 24 Hours: Laboratory Results - last 24 hr 09/01/20 09/01/20 09/02/20 Range/Units 16:53 16:53 06:15 WBC 6.18 (4.0-11.0) K/uL RBC 3.99 L (4.30-5.90) M/uL Hgb 13.0 (12.0-16.0) g/dL Hct 37.9 (36.0-46.0) % MCV 95.0 (80.0-98.0) fL MCH 32.6 H (27.0-32.0) pg MCHC 34.3 (31.0-37.0) g/dL RDW Std Deviation 41.4 (28.0-62.0) fl RDW Coeff of Fam 12 (11.0-15.0) % Plt Count 196 (150-400) K/uL MPV 11.60 (7.40-12.00) fL Nucleated RBC % 0.0 /100WBC Nucleated RBCs # 0 K/uL Cord ABG pH 7.266 (7.18-7.38) Cord ABG Base Excess -3 (-10--2) Cord VBG pH 7.317 (7.25-7.45) Cord VBG Base Excess -5 (-10--2) Blood Type O POSITIVE Antibody Screen NEGATIVE Med Orders - Current: Current Medications Acetaminophen (Acetaminophen 500 Mg Tab) 500 mg PO Q4H PRN PRN Reason: Pain Acetaminophen (Acetaminophen 500 Mg Tab) 1,000 mg PO Q4H PRN PRN Reason: Pain Benzocaine/Menthol (Benzocaine/Menthol 20%-0.5% [place] 78 Gm Cannister) 78 gm TOP ASDIRECTED PRN PRN Reason: Perineal Comfort Measure Last Admin: 09/02/20 08:38 Dose: 78 gm Documented by: Bisacodyl (Bisacodyl 10 Mg Supp) 10 mg RECTAL ONETIME PRN PRN Reason: Constipation Butorphanol Tartrate (Butorphanol 1 Mg/Ml Sdv) 1 mg IVPUSH Q1H PRN PRN Reason: Pain Carboprost Tromethamine (Carboprost Tromethamine 250 Mcg/1 Ml Amp) 250 mcg IM ASDIRECTED PRN PRN Reason: Post Hemorrhage Docusate Sodium (Docusate Sodium 100 Mg Cap) 100 mg PO BID PRN PRN Reason: Constipation Emollient Ointment (Lanolin 100% Cream 7 Gm Tube) 0 gm TOP ASDIRECTED PRN PRN Reason: Sore Nipples Oxytocin/Sodium Chloride (Oxytocin 30 Unit/500 Ml-Ns) 30 unit in 500 mls @ 999 mls/hr IV TITRATE FRANCINE Last Admin: 09/02/20 06:45 Dose: 999 mls/hr Documented by: Tranexamic Acid 1,000 mg/ (Sodium Chloride) 110 mls @ 660 mls/hr IV ONETIME PRN PRN Reason: Bleeding Lactated Ringer's (Ringers, Lactated) 1,000 mls @ 150 mls/hr IV ASDIRECTED FRANCINE Last Admin: 09/01/20 21:30 Dose: 999 mls/hr Documented by: Oxytocin/Sodium Chloride (Oxytocin 30 Unit/500 Ml-Ns) 30 unit in 500 mls @ 2 mls/hr IV TITRATE [facility]; Protocol Last Admin: 09/01/20 18:10 Dose: 2 munits/min, 2 mls/hr Documented by: Ibuprofen (Ibuprofen 400 Mg Tab) 400 mg PO Q4H PRN PRN Reason: Pain Ibuprofen (Ibuprofen 800 Mg Tab) 800 mg PO Q6H PRN PRN Reason: Pain Labetalol HCl (Labetalol 100 Mg Tab) 200 mg PO BID FRANCINE Last Admin: 09/02/20 08:39 Dose: 200 mg Documented by: Lidocaine HCl (Lidocaine 1% 50 Ml Mdv) 50 ml INJECT ONETIME PRN PRN Reason: Laceration repair Methylergonovine Maleate (Methylergonovine 0.2 Mg/1 Ml Amp) 0.2 mg IM ASDIRECTED PRN PRN Reason: Post Hemorrhage Misoprostol (Misoprostol 200 Mcg Tab) 200 mcg PO ONETIME PRN PRN Reason: Post Hemorrhage Ondansetron HCl (Ondansetron 4 Mg/2 Ml Sdv) 4 mg IVPUSH Q6H PRN PRN Reason: Nausea/Vomiting Last Admin: 09/02/20 06:00 Dose: 4 mg Documented by: Oxycodone HCl (Oxycodone 5 Mg Tab) 5 mg PO Q2H PRN PRN Reason: Pain Sodium Chloride (Sodium Chloride 0.9% 10 Ml Syringe) 10 ml FLUSH ASDIRECTED PRN PRN Reason: Keep Vein Open Sodium Chloride (Sodium Chloride 0.9% 2.5 Ml Syringe) 2.5 ml FLUSH ASDIRECTED PRN PRN Reason: Keep Vein Open Sodium Chloride (Sodium Chloride 0.9% 10 Ml Sdv) 10 ml IV ASDIRECTED PRN PRN Reason: IV Use Sterile Water (Water For Irrigation,Sterile 1,000 Ml Container) 1,000 ml IRR ASDIRECTED PRN PRN Reason: delivery Terbutaline Sulfate (Terbutaline 1 Mg/Ml Sdv) 0.25 mg SUBCUT ASDIRECTED PRN PRN Reason: Tacysystole Witch Serenity (Witch Serenity Medicated Pads 40/Jar) 1 pad TOP ASDIRECTED PRN PRN Reason: comfort care Last Admin: 09/02/20 08:38 Dose: 1 tub Documented by: Discontinued Medications Fentanyl (Fentanyl 100 Mcg/2 Ml Sdv) Confirm Administered Dose 100 mcg .ROUTE .STK-MED ONE Stop: 09/01/20 18:40 Fentanyl (Fentanyl 100 Mcg/2 Ml Sdv) Confirm Administered Dose 100 mcg .ROUTE .STK-MED ONE Stop: 09/02/20 05:14 Ropivacaine (Naropin 0.2%) Confirm Administered Dose 100 mls @ as directed .ROUTE .STK-MED ONE Stop: 09/01/20 18:40 Ropivacaine (Naropin 0.2%) Confirm Administered Dose 100 mls @ as directed .ROUTE .STK-MED ONE Stop: 09/02/20 05:14 - Problem List & Annotations (1) Vaginal delivery SNOMED Code(s): 949415678 Code(s): O80 - ENCOUNTER FOR FULL-TERM UNCOMPLICATED DELIVERY Status: Acute Current Visit: No - Problem List Review Problem List Initiated/Reviewed/Updated: Yes - My Orders Last 24 Hours: My Active Orders 09/01/20 21:00 Labetalol [Normodyne] 200 mg PO BID 09/02/20 Breakfast Regular Diet [DIET] 09/02/20 07:32 Patient Status [ADT] Routine May Shower [RC] ASDIRECTED Up ad Nancy [RC] ASDIRECTED Vital Signs [RC] PER UNIT ROUTINE Acetaminophen [Tylenol Extra Strength] 1,000 mg PO Q4H PRN Acetaminophen [Tylenol Extra Strength] 500 mg PO Q4H PRN Benzocaine/Menthol [Dermoplast Pain Relief 20%-0.5% [place]] 78 gm TOP ASDIRECTED PRN Docusate Sodium [Colace] 100 mg PO BID PRN Ibuprofen [Motrin] 400 mg PO Q4H PRN Ibuprofen [Motrin] 800 mg PO Q6H PRN Lanolin [Lansinoh HPA] See Dose Instructions TOP ASDIRECTED PRN bisacodyL [Dulcolax] 10 mg RECTAL ONETIME PRN oxyCODONE 5 mg PO Q2H PRN witch Serenity [Tucks] 1 pad TOP ASDIRECTED PRN Assess Lochia [WOMSER] Per Unit Routine Assess Uterine Involution [WOMSER] Per Unit Routine Peripheral IV Discontinue [OM.PC] Routine Resuscitation Status Routine 09/03/20 05:11 HEMOGLOBIN/HEMATOCRIT,HH [HEME] Timed
--- NOTE | 2020-09-03 08:16 | PCM.PNPP ---
- General Info Date of Service: 09/03/20 Functional Status: Reports: Pain Controlled, Tolerating Diet, Ambulating, Urinating - Review of Systems General: Reports: Fatigue. Denies: Fever, Weakness Pulmonary: Denies: Shortness of Breath Cardiovascular: Denies: Chest Pain, Palpitations, Lightheadedness Gastrointestinal: Denies: Abdominal Pain, Nausea, Vomiting Genitourinary: Denies: Flank Pain Musculoskeletal: Reports: No Symptoms Skin: Reports: No Symptoms Neurological: Reports: No Symptoms Psychiatric: Reports: No Symptoms - General Info Date of Service: 09/03/20 - Patient Data Vital Signs - Most Recent: Last Vital Signs Temp 36.4 C 09/03/20 03:37 Pulse 54 L 09/03/20 03:37 Resp 16 09/03/20 03:37 BP 135/89 09/03/20 03:37 Pulse Ox 100 09/03/20 03:37 Weight - Most Recent: 77.564 kg Lab Results - Last 24 Hours: Laboratory Results - last 24 hr 09/03/20 Range/Units 04:55 Hgb 13.2 (12.0-16.0) g/dL Hct 39.9 (36.0-46.0) % Med Orders - Current: Current Medications Acetaminophen (Acetaminophen 500 Mg Tab) 500 mg PO Q4H PRN PRN Reason: Pain Acetaminophen (Acetaminophen 500 Mg Tab) 1,000 mg PO Q4H PRN PRN Reason: Pain Benzocaine/Menthol (Benzocaine/Menthol 20%-0.5% [place] 78 Gm Cannister) 78 gm TOP ASDIRECTED PRN PRN Reason: Perineal Comfort Measure Last Admin: 09/02/20 08:38 Dose: 78 gm Documented by: Bisacodyl (Bisacodyl 10 Mg Supp) 10 mg RECTAL ONETIME PRN PRN Reason: Constipation Butorphanol Tartrate (Butorphanol 1 Mg/Ml Sdv) 1 mg IVPUSH Q1H PRN PRN Reason: Pain Carboprost Tromethamine (Carboprost Tromethamine 250 Mcg/1 Ml Amp) 250 mcg IM ASDIRECTED PRN PRN Reason: Post Hemorrhage Docusate Sodium (Docusate Sodium 100 Mg Cap) 100 mg PO BID PRN PRN Reason: Constipation Emollient Ointment (Lanolin 100% Cream 7 Gm Tube) 0 gm TOP ASDIRECTED PRN PRN Reason: Sore Nipples Oxytocin/Sodium Chloride (Oxytocin 30 Unit/500 Ml-Ns) 30 unit in 500 mls @ 999 mls/hr IV TITRATE [facility] Last Admin: 09/02/20 06:45 Dose: 999 mls/hr Documented by: Tranexamic Acid 1,000 mg/ (Sodium Chloride) 110 mls @ 660 mls/hr IV ONETIME PRN PRN Reason: Bleeding Lactated Ringer's (Ringers, Lactated) 1,000 mls @ 150 mls/hr IV ASDIRECTED [facility] Last Admin: 09/01/20 21:30 Dose: 999 mls/hr Documented by: Oxytocin/Sodium Chloride (Oxytocin 30 Unit/500 Ml-Ns) 30 unit in 500 mls @ 2 mls/hr IV TITRATE [facility]; Protocol Last Admin: 09/01/20 18:10 Dose: 2 munits/min, 2 mls/hr Documented by: Ibuprofen (Ibuprofen 400 Mg Tab) 400 mg PO Q4H PRN PRN Reason: Pain Ibuprofen (Ibuprofen 800 Mg Tab) 800 mg PO Q6H PRN PRN Reason: Pain Last Admin: 09/02/20 17:26 Dose: 800 mg Documented by: Labetalol HCl (Labetalol 100 Mg Tab) 200 mg PO BID [facility] Last Admin: 09/02/20 20:45 Dose: 200 mg Documented by: Lidocaine HCl (Lidocaine 1% 50 Ml Mdv) 50 ml INJECT ONETIME PRN PRN Reason: Laceration repair Methylergonovine Maleate (Methylergonovine 0.2 Mg/1 Ml Amp) 0.2 mg IM ASDIRECTED PRN PRN Reason: Post Hemorrhage Misoprostol (Misoprostol 200 Mcg Tab) 200 mcg PO ONETIME PRN PRN Reason: Post Hemorrhage Ondansetron HCl (Ondansetron 4 Mg/2 Ml Sdv) 4 mg IVPUSH Q6H PRN PRN Reason: Nausea/Vomiting Last Admin: 09/02/20 06:00 Dose: 4 mg Documented by: Oxycodone HCl (Oxycodone 5 Mg Tab) 5 mg PO Q2H PRN PRN Reason: Pain Sodium Chloride (Sodium Chloride 0.9% 10 Ml Syringe) 10 ml FLUSH ASDIRECTED PRN PRN Reason: Keep Vein Open Sodium Chloride (Sodium Chloride 0.9% 2.5 Ml Syringe) 2.5 ml FLUSH ASDIRECTED PRN PRN Reason: Keep Vein Open Sodium Chloride (Sodium Chloride 0.9% 10 Ml Sdv) 10 ml IV ASDIRECTED PRN PRN Reason: IV Use Sterile Water (Water For Irrigation,Sterile 1,000 Ml Container) 1,000 ml IRR ASDIRECTED PRN PRN Reason: delivery Terbutaline Sulfate (Terbutaline 1 Mg/Ml Sdv) 0.25 mg SUBCUT ASDIRECTED PRN PRN Reason: Tacysystole Witch Serenity (Witch Serenity Medicated Pads 40/Jar) 1 pad TOP ASDIRECTED PRN PRN Reason: comfort care Last Admin: 09/02/20 08:38 Dose: 1 tub Documented by: Discontinued Medications Fentanyl (Fentanyl 100 Mcg/2 Ml Sdv) Confirm Administered Dose 100 mcg .ROUTE .STK-MED ONE Stop: 09/01/20 18:40 Last Admin: 09/02/20 13:24 Dose: Not Given Documented by: Fentanyl (Fentanyl 100 Mcg/2 Ml Sdv) Confirm Administered Dose 100 mcg .ROUTE .STK-MED ONE Stop: 09/02/20 05:14 Last Admin: 09/02/20 13:25 Dose: Not Given Documented by: Ropivacaine (Naropin 0.2%) Confirm Administered Dose 100 mls @ as directed .ROUTE .STK-MED ONE Stop: 09/01/20 18:40 Last Admin: 09/02/20 13:24 Dose: Not Given Documented by: Ropivacaine (Naropin 0.2%) Confirm Administered Dose 100 mls @ as directed .ROUTE .[facility]-MED ONE Stop: 09/02/20 05:14 Last Admin: 09/02/20 13:25 Dose: Not Given Documented by: - Infant Interaction Support Person: Significant Other - Recovery Exam Fundal Tone: Firm Fundal Level: 1 Fingerbreadths Below Umbilicus Fundal Placement: Midline Lochia Amount: Scant Lochia Color: Rubra/Red Perineum Description: Other (see below) Other Perinuem Description: skid whit Episiotomy/Laceration: None Bladder Status: Voiding Urinary Elimination: Voided - Exam General: Alert, Oriented Lungs: Normal Respiratory Effort Cardiovascular: Regular Rate, Regular Rhythm GI/Abdominal Exam: Normal Bowel Sounds, Soft Extremities: Pedal Edema (trace). No: Elana's Sign Skin: Warm, Dry, Intact Neurological: No New Focal Deficit Psy/Mental Status: Alert, Normal Affect, Normal Mood - Problem List & Annotations (1) Vaginal delivery SNOMED Code(s): 002542365 Code(s): O80 - ENCOUNTER FOR FULL-TERM UNCOMPLICATED DELIVERY Status: Acute Current Visit: No - Problem List Review Problem List Initiated/Reviewed/Updated: Yes - My Orders Last 24 Hours: My Active Orders 09/03/20 08:12 Ready for Discharge [RC] PER UNIT ROUTINE - Assessment Assessment:: PPD 1 status post IUGR fetus Chronic hypertension, on labetalol - Plan Plan:: Doing well overall, would like to go home today. VS are stable--labs reassuring. going well. Discharge to home today if baby able to be discharged. Discharge instructions reviewed. Follow up at [facility] 4 weeks. C ontinue labetalol as prescribed, agrees to call if BP consistently >140/90.
[2020-09-03] MEDS: Labetalol 100 MG Tab PO SCH (08:19)
[2020-09-03 08:21] VITALS: BP 142/82; PULSE 55
--- NOTE | 2020-09-03 13:37 | OR ---
SURGEON: MAYRA TORRES DATE OF PROCEDURE: 09/03/2020 PREOPERATIVE DIAGNOSES: A 35-year-old G4, P2-0-1-2 at 39 weeks and 2 days with chronic hypertension and intrauterine growth restriction. POSTOPERATIVE DIAGNOSES: A 35-year-old G4, P2-0-1-2 at 39 weeks and 2 days with chronic hypertension and intrauterine growth restriction. PROCEDURE: Normal spontaneous vaginal delivery. ESTIMATED BLOOD LOSS: 300. INTRAVENOUS FLUIDS: Pitocin running. ANESTHESIA: Epidural. NOTES AND FINDINGS: A live female delivered at 6:15 a.m. on 09/02/2020. scores are 8 and 9. Weight is 2530 g. BRIEF HISTORY ABOUT THE PATIENT: She is a 35-year-old G4, P2-0-1-2 was admitted for induction of labor secondary to IUGR with elevated Dopplers. When she came in she was about 2 cm to 3 cm dilated. AROM was done. Pitocin was started. Patient requested epidural, which she got. She had a normal labor curve and she became fully dilated. DESCRIPTION OF PROCEDURE: With the patient being fully dilated, she was encouraged to push. With good pushing effort, she delivered the head in SHANICE position followed subsequently by the anterior and posterior shoulder. The body of the baby was delivered and placed on the maternal abdomen. Delayed cord clamping was observed. Cord blood gases were obtained. The placenta was delivered by controlled cord traction. After delivery of placenta, uterus was noted to be slightly boggy, so additional Pitocin bag was left to run. Abdomen was massaged after which the uterus was noted to be firm and bleeding was normal. Normal lochia noted. The patient tolerated the procedure well and was left in Labor and Delivery room in stable condition. ESTHER AVALOS /[id number]
== END 2020-09-03 13:50 | disposition home or self-care (01) | DRG 560 ==
LOC: MW.OBCHECK 16:13 → MW.OB 16:15 → MW.OBCHECK 17:14 → MW.OB 17:15 → OBSVTOIN 09-02 07:32 → MW.OB 09-02 10:17
PROVIDERS: ADMIT Obstetrics & Gynecology; ATTEND Obstetrics & Gynecology
PROC: 10E0XZZ Delivery of Products of Conception, External Approach (ICD-10-PCS; principal; 2020-09-02)
PROC: 10907ZC Drainage of Amniotic Fluid, Therapeutic from Products of Conception, Via Natural or Artificial Opening (ICD-10-PCS; 2020-09-02)
PROC: 3E0R3BZ Introduction of Anesthetic Agent into Spinal Canal, Percutaneous Approach (ICD-10-PCS; 2020-09-02)
PROC: 00HU33Z Insertion of Infusion Device into Spinal Canal, Percutaneous Approach (ICD-10-PCS; 2020-09-02)
DX: O36.5930 Maternal care for other known or suspected poor fetal growth, third trimester, not applicable or unspecified (principal); Z37.0 Single live birth; O10.92 Unspecified pre-existing hypertension complicating childbirth; Z3A.39 39 weeks gestation of pregnancy
CPT/HCPCS: 01967; 36415; 51702; 59025; 59409; 82803; 85014; 85018; 85027; 86592; 86850; 86900; 86901; A9270-GY; J2405; J2590; J2795; J3010; J7120

== ENCOUNTER 2022-04-29 08:50 | Inpatient (IN) | payer BC ==
[2022-04-29] MEDS: Lactated Ringers 1,000 ML IV SCH ×2 (09:13→11:11)
[2022-04-29] MEDS ORDERED: Betamethasone Acetate/Betamethasone Sod Phosphate 30 MG/5 ML MDV ONE (09:28)
[2022-04-29] MEDS ORDERED: Lidocaine 1% 50 ML MDV INJECT PRN (09:34)
[2022-04-29] MEDS ORDERED: Sodium Chloride 0.9% 2.5 ML Syringe FLUSH PRN (09:34)
[2022-04-29] MEDS ORDERED: Water For Irrigation,Sterile 1,000 ML Container IRR PRN (09:34)
[2022-04-29] MEDS ORDERED: Methylergonovine 0.2 MG/1 ML Amp IM PRN (09:34)
[2022-04-29] MEDS ORDERED: Butorphanol 1 MG/ML SDV IVPUSH PRN (09:34)
[2022-04-29] MEDS ORDERED: Sodium Chloride 0.9% 20 ML SDV IV PRN (09:34)
[2022-04-29] MEDS ORDERED: Tranexamic Acid 1,000 MG in Sodium Chloride 0.9% 100 ML IV PRN ×2 (09:34→12:59)
[2022-04-29] MEDS ORDERED: Ampicillin 2 GM in Sodium Chloride 0.9% 100 ML IV ONE (09:34)
[2022-04-29] MEDS ORDERED: Sodium Chloride 0.9% 10 ML Syringe FLUSH PRN (09:34)
[2022-04-29] MEDS ORDERED: Ampicillin 2 GM AdvVial IV ONE (09:34)
[2022-04-29] MEDS ORDERED: Sodium Chloride 0.9% 100 ML ONE (09:34)
[2022-04-29] MEDS ORDERED: Carboprost Tromethamine 250 MCG/1 ML Amp IM PRN (09:34)
[2022-04-29] MEDS ORDERED: Misoprostol 200 MCG Tab PO PRN (09:34)
[2022-04-29] MEDS ORDERED: Calcium Gluconate 10% 1 GM/10 ML SDV IV PRN (09:39)
[2022-04-29] MEDS ORDERED: Labetalol 100 MG Tab ONE (09:40)
[2022-04-29] MEDS ORDERED: Oxytocin/0.9 % Sodium Chloride 30 UNIT/500 ML BAG IV SCH (09:45)
[2022-04-29] MEDS ORDERED: Magnesium Sulfate/Water 4 GM in Premix Bag 1 BAG IV ONE (10:00)
[2022-04-29] MEDS ORDERED: Bupivacaine 0.5% 10 ML SDV ONE (10:09)
[2022-04-29] MEDS ORDERED: Ropivacaine/PF 400 MG/200 ML PCA ONE (10:09)
[2022-04-29] MEDS ORDERED: Magnesium Sulfate/Water 20 GM/500 ML BAG IV SCH (10:20)
[2022-04-29] MEDS ORDERED: Phenylephrine HCl In 0.9% NaCl 1 MG/10 ML Vial IVPUSH PRN (11:04)
[2022-04-29] MEDS ORDERED: ePHEDrine 50 MG/ML SDV IVPUSH PRN ×2 (11:04)
[2022-04-29] MEDS ORDERED: Phenylephrine HCl In 0.9% NaCl 1 MG/10 ML Vial IVPUSH SCH (11:15)
[2022-04-29] MEDS ORDERED: Ropivacaine HCl/PF 400 MG in Premix Bag 1 BAG EPIDUR SCH (11:15)
[2022-04-29] MEDS ORDERED: Benzonatate 100 MG Cap PO PRN (11:32)
[2022-04-29] MEDS ORDERED: Ibuprofen 400 MG Tab PO PRN (12:59)
[2022-04-29] MEDS ORDERED: Docusate Sodium 100 MG Cap PO PRN (12:59)
[2022-04-29] MEDS ORDERED: oxyCODONE 5 MG Tab PO PRN (12:59)
[2022-04-29] MEDS ORDERED: Ibuprofen 800 MG Tab PO PRN (12:59)
[2022-04-29] MEDS ORDERED: Acetaminophen 500 MG Tab PO PRN ×2 (12:59)
[2022-04-29] MEDS ORDERED: Benzocaine/Menthol 20%-0.5% Spray 78 GM Cannister TOP PRN (12:59)
[2022-04-29] MEDS ORDERED: Lanolin 100% Cream 7 GM Tube TOP PRN (12:59)
[2022-04-29] MEDS ORDERED: Witch Hazel Medicated Pads 40/Jar TOP PRN (12:59)
[2022-04-29] MEDS ORDERED: Bisacodyl 10 MG Supp RECTAL PRN (12:59)
[2022-04-29] MEDS ORDERED: Ampicillin 1 GM in Sodium Chloride 0.9% 50 ML IV SCH (13:45)
[2022-04-29 17:02] VITALS: BP 120/72; PULSE 70
[2022-04-29] MEDS ORDERED: Labetalol 100 MG Tab PO SCH (21:00)
[2022-04-30] MEDS ORDERED: Prenatal Multivitamin with Calcium/Folic Acid/Iron Tab PO SCH (09:00)
== END 2022-04-29 17:20 | disposition home or self-care (01) | DRG 560 ==
LOC: MW.OBCHECK 08:50 → MW.OB 08:56 → MW.OBCHECK 12:25 → MW.OB 12:30
PROVIDERS: ADMIT Obstetrics & Gynecology; ATTEND Obstetrics & Gynecology
PROC: 10E0XZZ Delivery of Products of Conception, External Approach (ICD-10-PCS; principal; 2022-04-29)
PROC: 3E0R3BZ Introduction of Anesthetic Agent into Spinal Canal, Percutaneous Approach (ICD-10-PCS; 2022-04-29)
PROC: 00HU33Z Insertion of Infusion Device into Spinal Canal, Percutaneous Approach (ICD-10-PCS; 2022-04-29)
DX: O60.14X0 Preterm labor third trimester with preterm delivery third trimester, not applicable or unspecified (principal); Z3A.32 32 weeks gestation of pregnancy; Z37.0 Single live birth; O10.92 Unspecified pre-existing hypertension complicating childbirth; Z20.822 Contact with and (suspected) exposure to COVID-19
CPT/HCPCS: 36415; 51702; 59025; 59409; 82803; 83735; 85027; 86592; 86850; 86900; 86901; 87653; A9270-GY; J0290; J0702; J2590; J2795; J3475; J3490; J7120; U0002